=== PATIENT | female | born 1965 | race African-American/Black ===

== ENCOUNTER 2018-10-14 17:03 | Inpatient (IN) | payer OTHER ==
[2018-10-14 19:49] VITALS: BMI 34.0
--- NOTE | 2018-10-15 00:16 | HP ---
CIWA Score - Admission Criteria [facility]ASAS Guidelines: Admission for Medically Managed Detox: Requires at least one of the followin. CIWA greater than 12 2. Seizures within the past 24 hours 3. Delirium tremens within the past 24 hours 4. Hallucinations within the past 24 hours 5. Acute intervention needed for co occurring medical disorder 6. Acute intervention needed for co occurring psychiatric disorder 7. Severe withdrawal that cannot be handled at a lower level of care (continued vomiting, continued diarrhea, abnormal vital signs) requiring intravenous medication and/or fluids 8. Admission ROS S - HPI Chief Complaint: Seeking admission to Rehab. Allergies/Adverse Reactions: Allergies Allergy/AdvReac Type Severity Reaction Status Date / Time No Known Allergies Allergy Verified 10/14/18 19:49 History of Present Illness: 53 years old female with a long history of alcohol dependence is seeking admission to Rehab. Patient reports that she was in detox at [facility] for 4 days and was picked up by [facility] for Rehab. She has history of asthma, gastritis and hyperlipidemia. She denies suicidal ideation at this time. This her first admission to [facility] Exam Limitations: No Limitations - Ebola screening Have you traveled outside of the country in the last 21 days: No Have you had contact with anyone from an Ebola affected area: No - Review of Systems Constitutional: No Symptoms Reported EENT: reports: No Symptoms Reported Respiratory: reports: No Symptoms reported Cardiac: reports: No Symptoms Reported GI: reports: No Symptoms Reported : reports: No Symptoms Reported Musculoskeletal: reports: No Symptoms Reported Integumentary: reports: No Symptoms Reported Neuro: reports: No Symptoms reported Endocrine: reports: No Symptoms Reported Hematology: reports: No Symptoms Reported Psychiatric: reports: No Sypmtoms Reported, Orientated x3 Other Systems: Reviewed and Negative Patient History - Patient Medical History Hx Anemia: No Hx Asthma: No Hx Chronic Obstructive Pulmonary Disease (COPD): No Hx Cancer: No Hx Cardiac Disorders: No Hx Congestive Heart Failure: No Hx Hypertension: No Hx Hypercholesterolemia: Yes (Lipitor) Hx Pacemaker: No HX Cerebrovascular Accident: No Hx Seizures: No Hx Dementia: No Hx Diabetes: No Hx Gastrointestinal Disorders: Yes (Gastritis -Npt on mediation) Hx Liver Disease: No Hx Genitourinary Disorders: No Hx Sexually Transmitted Disorders: No Hx Renal Disease (ESRD): No Hx Thyroid Disease: No Hx Human Immunodeficiency Virus (HIV): No (Negative 2019) Hx Hepatitis C: No Hx Depression: Yes (Not o medication) Hx Suicide Attempt: No Hx Bipolar Disorder: No Hx Schizophrenia: No - Patient Surgical History Past Surgical History: Yes Other Surgical History: TUBAL LIGATION at age 22 - PPD History Previous Implant?: Yes Documented Results: Negative w/o proof PPD to be Administered?: Yes - Reproductive History Patient is a Female of Child Bearing Age (11 -55 yrs old): Yes LMP comment: MENOPAUSAL - Smoking Cessation Smoking history: Current every day smoker Have you smoked in the past 12 months: Yes Aproximately how many cigarettes per day: 3 Hx Chewing Tobacco Use: No Initiated information on smoking cessation: Yes 'Breaking Loose' booklet given: 10/15/18 - Substances abused Crack Substance route: Smoking Frequency: Daily Amount used: 100 dollars Age of first use: 22 Date of last use: 10/13/18 Alcohol Substance route: Oral Frequency: Daily Amount used: 1 fifth of vodka Age of first use: 11 Date of last use: 10/13/18 Family Disease History - Family Disease History Family Disease History: Heart Disease: Father, CA: Mother (UTERUS- ) Admission Physical Exam S - Vital Signs Vital Signs: Vital Signs - 24 hr 10/14/18 19:37 Temperature 98.6 F Pulse Rate 102 H Respiratory 20 Rate Blood Pressure 123/75 - Physical General Appearance: Yes: Within Normal Limits HEENTM: Yes: Within Normal Limits, Normal ENT Inspection, Normal Voice, ROLANDO Respiratory: Yes: Lungs Clear, Normal Breath Sounds, No Respiratory Distress Neck: Yes: Supple, Trachea in good position Breast: Yes: Breast Exam Deferred Cardiology: Yes: Regular Rhythm, Regular Rate Abdominal: Yes: Normal Bowel Sounds Genitourinary: Yes: Within Normal Limits Back: Yes: Normal Inspection Musculoskeletal: Yes: Within Normal Limits Extremities: Yes: Within Normal Limits Neurological: Yes: Within Normal Limits, Alert, Normal Mood/Affect Integumentary: Yes: Warm Lymphatic: Yes: Within Normal Limits - Diagnostic (1) Uncomplicated alcohol dependence Current Visit: Yes Status: Chronic (2) Cocaine dependence Current Visit: Yes Status: Chronic Qualifiers: Substance use status: uncomplicated Qualified Code(s): F14.20 - Cocaine dependence, uncomplicated (3) Acute gastritis Current Visit: Yes Status: Chronic Qualifiers: Gastritis type: unspecified gastritis (4) Active asthma Current Visit: Yes Status: Acute (5) Hyperlipidemia Current Visit: Yes Status: Chronic Cleared for Admission S - Detox or Rehab [facility] Level of Care: Observation Bed Claeared for Rehab Admission: Yes Breathalyzer - Breathalyzer Breathalyzer: 0 Urine Drug Screen - Test Device Lot number: [id number] Expiration date: 06/12/20 - Control Is test valid?: Yes - Results Drug screen NEGATIVE: No Urine drug screen results: ADI-Cocaine, BZO-Benzodiazepines Inpatient Rehab Admission - Rehab Decision to Admit Inpatient rehab admission?: No
[2018-10-15] MEDS ORDERED: ACETAMINOPHEN 325 MG TABLET (FP) PO PRN (00:32)
[2018-10-15] MEDS ORDERED: MAGNESIUM HYDROX 2400MG/30ML ORAL SUSPENSION 30 ML CUP PO PRN (00:32)
[2018-10-15] MEDS ORDERED: P-EPHED 60MG/TRIPROLIDI 2.5MG TABLET PO PRN (00:32)
[2018-10-15] MEDS ORDERED: MAGNESIUM CITRATE 300 ML BOTTLE PO PRN (00:32)
[2018-10-15] MEDS ORDERED: guaiFENesin 200 MG/10 ML 10 ML UNIT-DOSE CUPS PO PRN (00:32)
[2018-10-15] MEDS ORDERED: MENTHOL/PHENOL 1 EACH UD MM PRN (00:32)
[2018-10-15] MEDS ORDERED: MAG HYDROX/AL HYDROX/SIMETH 30 ML UNIT-DOSE CUP PO PRN (00:32)
[2018-10-15] MEDS ORDERED: LOPERAMIDE HCL 2 MG CAPSULE PO PRN (00:32)
[2018-10-15] MEDS: PRENATAL VITAMINS W/ FOLIC ACID TABLET (FP) PO SCH (10:08)
[2018-10-15] MEDS: NICOTINE 14 MG/24 HOURS TOPICAL PATCH TD SCH (10:08)
[2018-10-15] MEDS: THIAMINE HCL 100 MG TABLET (FP) PO SCH ×2 (10:08→21:40)
--- NOTE | 2018-10-15 10:42 | EKG ---
Test Reason : Blood Pressure : / mmHG Vent. Rate : 070 BPM Atrial Rate : 070 BPM P-R Int : 136 ms QRS Dur : 070 ms QT Int : 408 ms P-R-T Axes : 054 016 011 degrees QTc Int : 440 ms POOR DATA QUALITY, INTERPRETATION MAY BE ADVERSELY AFFECTED SINUS RHYTHM WITH MARKED SINUS ARRHYTHMIA OTHERWISE NORMAL ECG NO PREVIOUS ECGS AVAILABLE Confirmed by ISABELLE STEPHENS, MARLA ([id number]) on 10/15/2018 10:42:04 AM Referred By: Confirmed By:MARLA WALTON MD
[2018-10-15] MEDS: MELATONIN 5 MG TABLETS PO PRN (21:41)
[2018-10-16] MEDS: THIAMINE HCL 100 MG TABLET (FP) PO SCH ×2 (09:21→21:29)
[2018-10-16] MEDS: NICOTINE 14 MG/24 HOURS TOPICAL PATCH TD SCH (09:21)
[2018-10-16] MEDS: PRENATAL VITAMINS W/ FOLIC ACID TABLET (FP) PO SCH (09:21)
[2018-10-16] MEDS: MELATONIN 5 MG TABLETS PO PRN (21:29)
[2018-10-17] MEDS: PRENATAL VITAMINS W/ FOLIC ACID TABLET (FP) PO SCH (09:31)
[2018-10-17] MEDS: NICOTINE 14 MG/24 HOURS TOPICAL PATCH TD SCH (09:31)
[2018-10-17] MEDS: THIAMINE HCL 100 MG TABLET (FP) PO SCH ×2 (09:32→21:35)
[2018-10-17] MEDS: MELATONIN 5 MG TABLETS PO PRN (21:35)
[2018-10-18] MEDS: NICOTINE 14 MG/24 HOURS TOPICAL PATCH TD SCH (10:14)
[2018-10-18] MEDS: PRENATAL VITAMINS W/ FOLIC ACID TABLET (FP) PO SCH (10:14)
[2018-10-18] MEDS: THIAMINE HCL 100 MG TABLET (FP) PO SCH ×2 (10:15→21:28)
[2018-10-18] MEDS: MELATONIN 5 MG TABLETS PO PRN (21:27)
[2018-10-19] MEDS: PRENATAL VITAMINS W/ FOLIC ACID TABLET (FP) PO SCH (10:06)
[2018-10-19] MEDS: THIAMINE HCL 100 MG TABLET (FP) PO SCH ×2 (10:07→21:34)
[2018-10-19] MEDS: NICOTINE 14 MG/24 HOURS TOPICAL PATCH TD SCH (10:07)
[2018-10-19] MEDS: MELATONIN 5 MG TABLETS PO PRN (21:34)
[2018-10-20] MEDS: PRENATAL VITAMINS W/ FOLIC ACID TABLET (FP) PO SCH (09:37)
[2018-10-20] MEDS: THIAMINE HCL 100 MG TABLET (FP) PO SCH ×2 (09:37→21:09)
[2018-10-20] MEDS: NICOTINE 14 MG/24 HOURS TOPICAL PATCH TD SCH (09:38)
[2018-10-20] MEDS ORDERED: PT OWN MED DRAWER 7, Y5N ONE (19:39)
[2018-10-20] MEDS: MELATONIN 5 MG TABLETS PO PRN (21:09)
[2018-10-21] MEDS: PRENATAL VITAMINS W/ FOLIC ACID TABLET (FP) PO SCH (09:55)
[2018-10-21] MEDS: NICOTINE 14 MG/24 HOURS TOPICAL PATCH TD SCH (09:55)
[2018-10-21] MEDS: THIAMINE HCL 100 MG TABLET (FP) PO SCH ×2 (09:55→21:37)
[2018-10-21] MEDS: MELATONIN 5 MG TABLETS PO PRN (21:38)
[2018-10-22] MEDS: PRENATAL VITAMINS W/ FOLIC ACID TABLET (FP) PO SCH (10:07)
[2018-10-22] MEDS: NICOTINE 14 MG/24 HOURS TOPICAL PATCH TD SCH (10:08)
[2018-10-22] MEDS: THIAMINE HCL 100 MG TABLET (FP) PO SCH ×2 (10:08→21:55)
[2018-10-22] MEDS: MELATONIN 5 MG TABLETS PO PRN (21:55)
[2018-10-23] MEDS: NICOTINE 14 MG/24 HOURS TOPICAL PATCH TD SCH (09:45)
[2018-10-23] MEDS: PRENATAL VITAMINS W/ FOLIC ACID TABLET (FP) PO SCH (09:45)
[2018-10-23] MEDS: THIAMINE HCL 100 MG TABLET (FP) PO SCH ×2 (09:45→21:47)
[2018-10-23] MEDS: MELATONIN 5 MG TABLETS PO PRN (21:47)
[2018-10-24] MEDS: NICOTINE 14 MG/24 HOURS TOPICAL PATCH TD SCH (09:44)
[2018-10-24] MEDS: PRENATAL VITAMINS W/ FOLIC ACID TABLET (FP) PO SCH (09:44)
[2018-10-24] MEDS: THIAMINE HCL 100 MG TABLET (FP) PO SCH ×2 (09:46→21:06)
[2018-10-24] MEDS: MELATONIN 5 MG TABLETS PO PRN (21:06)
[2018-10-25] MEDS: NICOTINE 14 MG/24 HOURS TOPICAL PATCH TD SCH (10:08)
[2018-10-25] MEDS: PRENATAL VITAMINS W/ FOLIC ACID TABLET (FP) PO SCH (10:08)
[2018-10-25] MEDS: THIAMINE HCL 100 MG TABLET (FP) PO SCH ×2 (10:08→21:48)
[2018-10-25] MEDS: MELATONIN 5 MG TABLETS PO PRN (21:49)
[2018-10-26] MEDS: NICOTINE 14 MG/24 HOURS TOPICAL PATCH TD SCH (09:45)
[2018-10-26] MEDS: THIAMINE HCL 100 MG TABLET (FP) PO SCH ×2 (09:46→21:50)
[2018-10-26] MEDS: PRENATAL VITAMINS W/ FOLIC ACID TABLET (FP) PO SCH (09:46)
[2018-10-26] MEDS: MELATONIN 5 MG TABLETS PO PRN (21:50)
[2018-10-27] MEDS: THIAMINE HCL 100 MG TABLET (FP) PO SCH ×2 (09:36→21:45)
[2018-10-27] MEDS: PRENATAL VITAMINS W/ FOLIC ACID TABLET (FP) PO SCH (09:36)
[2018-10-27] MEDS: NICOTINE 14 MG/24 HOURS TOPICAL PATCH TD SCH (09:36)
[2018-10-27] MEDS: MELATONIN 5 MG TABLETS PO PRN (21:46)
[2018-10-28] MEDS: PRENATAL VITAMINS W/ FOLIC ACID TABLET (FP) PO SCH (09:37)
[2018-10-28] MEDS: NICOTINE 14 MG/24 HOURS TOPICAL PATCH TD SCH (09:37)
[2018-10-28] MEDS: THIAMINE HCL 100 MG TABLET (FP) PO SCH ×2 (09:37→21:43)
[2018-10-28] MEDS: MELATONIN 5 MG TABLETS PO PRN (21:43)
[2018-10-29] MEDS: THIAMINE HCL 100 MG TABLET (FP) PO SCH ×2 (09:44→21:30)
[2018-10-29] MEDS: NICOTINE 14 MG/24 HOURS TOPICAL PATCH TD SCH (09:44)
[2018-10-29] MEDS: PRENATAL VITAMINS W/ FOLIC ACID TABLET (FP) PO SCH (09:44)
[2018-10-29] MEDS: MELATONIN 5 MG TABLETS PO PRN (21:30)
[2018-10-30] MEDS: THIAMINE HCL 100 MG TABLET (FP) PO SCH ×2 (10:06→21:50)
[2018-10-30] MEDS: PRENATAL VITAMINS W/ FOLIC ACID TABLET (FP) PO SCH (10:06)
[2018-10-30] MEDS: NICOTINE 14 MG/24 HOURS TOPICAL PATCH TD SCH (10:07)
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
[2018-10-30] MEDS: QUEtiapine FUMARATE 100 MG TABLET (FP) PO SCH (21:50)
[2018-10-31] MEDS: NICOTINE 14 MG/24 HOURS TOPICAL PATCH TD SCH (10:13)
[2018-10-31] MEDS: PRENATAL VITAMINS W/ FOLIC ACID TABLET (FP) PO SCH (10:13)
[2018-10-31] MEDS: THIAMINE HCL 100 MG TABLET (FP) PO SCH ×2 (10:13→21:47)
[2018-10-31] MEDS ORDERED: PT OWN MED DRAWER 7, Y5N ONE (11:44)
[2018-10-31] MEDS: QUEtiapine FUMARATE 100 MG TABLET (FP) PO SCH (21:47)
[2018-11-01] MEDS: PRENATAL VITAMINS W/ FOLIC ACID TABLET (FP) PO SCH (09:55)
[2018-11-01] MEDS: THIAMINE HCL 100 MG TABLET (FP) PO SCH ×2 (09:55→21:37)
[2018-11-01] MEDS: NICOTINE 14 MG/24 HOURS TOPICAL PATCH TD SCH (09:55)
[2018-11-01] MEDS: QUEtiapine FUMARATE 100 MG TABLET (FP) PO SCH (21:37)
[2018-11-02] MEDS ORDERED: PT OWN MED DRAWER 7, Y5N ONE (09:08)
[2018-11-02] MEDS: NICOTINE 14 MG/24 HOURS TOPICAL PATCH TD SCH (10:22)
[2018-11-02] MEDS: PRENATAL VITAMINS W/ FOLIC ACID TABLET (FP) PO SCH (10:22)
[2018-11-02] MEDS: THIAMINE HCL 100 MG TABLET (FP) PO SCH ×2 (10:22→21:45)
[2018-11-02] MEDS: QUEtiapine FUMARATE 100 MG TABLET (FP) PO SCH (21:45)
[2018-11-03] MEDS: NICOTINE 14 MG/24 HOURS TOPICAL PATCH TD SCH (10:24)
[2018-11-03] MEDS: THIAMINE HCL 100 MG TABLET (FP) PO SCH ×2 (10:24→21:16)
[2018-11-03] MEDS: PRENATAL VITAMINS W/ FOLIC ACID TABLET (FP) PO SCH (10:24)
[2018-11-03] MEDS ORDERED: PT OWN MED DRAWER 7, Y5N ONE (15:01)
[2018-11-03] MEDS: MELATONIN 5 MG TABLETS PO PRN (21:16)
[2018-11-03] MEDS: QUEtiapine FUMARATE 100 MG TABLET (FP) PO SCH (21:17)
[2018-11-04] MEDS: NICOTINE 14 MG/24 HOURS TOPICAL PATCH TD SCH (09:48)
[2018-11-04] MEDS: THIAMINE HCL 100 MG TABLET (FP) PO SCH ×2 (09:48→21:24)
[2018-11-04] MEDS: PRENATAL VITAMINS W/ FOLIC ACID TABLET (FP) PO SCH (09:48)
[2018-11-04] MEDS: QUEtiapine FUMARATE 100 MG TABLET (FP) PO SCH (21:24)
[2018-11-04] MEDS: NICOTINE POLACRILEX 2 MG GUM BUC PRN (21:32)
[2018-11-05] MEDS: NICOTINE POLACRILEX 2 MG GUM BUC PRN (10:24)
[2018-11-05] MEDS: THIAMINE HCL 100 MG TABLET (FP) PO SCH ×2 (10:24→21:22)
[2018-11-05] MEDS: PRENATAL VITAMINS W/ FOLIC ACID TABLET (FP) PO SCH (10:24)
[2018-11-05] MEDS: NICOTINE 14 MG/24 HOURS TOPICAL PATCH TD SCH (10:24)
[2018-11-05] MEDS: MELATONIN 5 MG TABLETS PO PRN (21:22)
[2018-11-05] MEDS: QUEtiapine FUMARATE 100 MG TABLET (FP) PO SCH (21:22)
[2018-11-06] MEDS: NICOTINE 14 MG/24 HOURS TOPICAL PATCH TD SCH (09:43)
[2018-11-06] MEDS: THIAMINE HCL 100 MG TABLET (FP) PO SCH ×2 (09:43→21:34)
[2018-11-06] MEDS: PRENATAL VITAMINS W/ FOLIC ACID TABLET (FP) PO SCH (09:43)
[2018-11-06] MEDS: NICOTINE POLACRILEX 2 MG GUM BUC PRN (09:44)
[2018-11-06] MEDS ORDERED: COLLOIDAL OATMEAL 1 BAR EACH TP PRN (11:48)
[2018-11-06] MEDS: MELATONIN 5 MG TABLETS PO PRN (21:34)
[2018-11-06] MEDS: QUEtiapine FUMARATE 100 MG TABLET (FP) PO SCH (21:34)
[2018-11-07] MEDS: NICOTINE 14 MG/24 HOURS TOPICAL PATCH TD SCH (09:49)
[2018-11-07] MEDS: PRENATAL VITAMINS W/ FOLIC ACID TABLET (FP) PO SCH (09:49)
[2018-11-07] MEDS: THIAMINE HCL 100 MG TABLET (FP) PO SCH ×2 (09:49→21:16)
[2018-11-07] MEDS: NICOTINE POLACRILEX 2 MG GUM BUC PRN (09:51)
[2018-11-07] MEDS: MELATONIN 5 MG TABLETS PO PRN (21:16)
[2018-11-07] MEDS: QUEtiapine FUMARATE 100 MG TABLET (FP) PO SCH (21:16)
[2018-11-08] MEDS: NICOTINE 14 MG/24 HOURS TOPICAL PATCH TD SCH (09:27)
[2018-11-08] MEDS: PRENATAL VITAMINS W/ FOLIC ACID TABLET (FP) PO SCH (09:27)
[2018-11-08] MEDS: THIAMINE HCL 100 MG TABLET (FP) PO SCH ×2 (09:27→21:27)
[2018-11-08] MEDS: NICOTINE POLACRILEX 2 MG GUM BUC PRN (09:28)
[2018-11-08] MEDS: QUEtiapine FUMARATE 100 MG TABLET (FP) PO SCH (21:27)
[2018-11-08] MEDS: MELATONIN 5 MG TABLETS PO PRN (21:27)
[2018-11-08] MEDS: IBUPROFEN 400 MG TABLET (FP) PO PRN (21:27)
[2018-11-09] MEDS: PRENATAL VITAMINS W/ FOLIC ACID TABLET (FP) PO SCH (09:29)
[2018-11-09] MEDS: NICOTINE 14 MG/24 HOURS TOPICAL PATCH TD SCH (09:29)
[2018-11-09] MEDS: THIAMINE HCL 100 MG TABLET (FP) PO SCH ×2 (09:29→21:39)
[2018-11-09] MEDS: NICOTINE POLACRILEX 2 MG GUM BUC PRN (09:29)
[2018-11-09] MEDS: QUEtiapine FUMARATE 100 MG TABLET (FP) PO SCH (21:39)
[2018-11-10] MEDS: NICOTINE POLACRILEX 2 MG GUM BUC PRN (09:30)
[2018-11-10] MEDS: NICOTINE 14 MG/24 HOURS TOPICAL PATCH TD SCH (09:30)
[2018-11-10] MEDS: PRENATAL VITAMINS W/ FOLIC ACID TABLET (FP) PO SCH (09:30)
[2018-11-10] MEDS: THIAMINE HCL 100 MG TABLET (FP) PO SCH ×2 (09:30→21:38)
[2018-11-10] MEDS: QUEtiapine FUMARATE 100 MG TABLET (FP) PO SCH (21:38)
--- NOTE | 2018-11-11 08:13 | PN ---
[facility] Progress Note Note: Patient is scheduled for discharge tomorrow. Script for 30 days supply of Seroquel 100 mg/hs will be electronically transmitted to [facility] [address] [id number]
[2018-11-11] MEDS: PRENATAL VITAMINS W/ FOLIC ACID TABLET (FP) PO SCH (10:24)
[2018-11-11] MEDS: NICOTINE 14 MG/24 HOURS TOPICAL PATCH TD SCH (10:24)
[2018-11-11] MEDS: IBUPROFEN 400 MG TABLET (FP) PO PRN (10:25)
[2018-11-11] MEDS: THIAMINE HCL 100 MG TABLET (FP) PO SCH ×2 (10:25→21:20)
--- NOTE | 2018-11-11 13:52 | PN ---
S Progress Note (SOAP) Subjective: Patient to be discharged tomorrow. HOSPITAL COURSE: Patient attended groups, [place] 1:1 session with counselor, was adherent to her treatment plan and her medication regimen. Patient made satisfactory progress on her recovery and had no medical issues. Objective: - Physical General Appearance: appropriate HEENTM: ROLANDO, normocephalic, poor dentition Respiratory: Lungs Clear, Normal Breath Sounds, No Respiratory Distress Neck: Supple, Trachea in good position Cardiology: Regular Rhythm, Regular Rate Abdominal:+Bowel Sounds Musculoskeletal: full weight bearing, full ROM, gait steady Neurological: Alert, CN 2-12 intact, no neurological deficits noted Integumentary: Warm, dry, good skin turgor, color consistent throughout trunk and extremities Lymphatic: no palpable lymph nodes. Vital Signs (72 hours) 11/09/18 11/09/18 11/09/18 00:30 03:30 06:41 Temperature 97.3 F L Pulse Rate 75 Respiratory 18 18 16 Rate Blood Pressure 121/74 11/10/18 11/10/18 11/10/18 00:30 03:30 06:43 Temperature 97.7 F Pulse Rate 113 H Respiratory 18 18 20 Rate Blood Pressure 118/71 11/11/18 11/11/18 03:30 07:05 Temperature 97.6 F Pulse Rate 84 Respiratory 18 18 Rate Blood Pressure 112/80 11/11/18 13:49 Assessment: Medically stable for discharge Discharge Dx: ETOH dependence Cocaine Dependence Hyperlipidemia Asthma Gastritis. chronic 11/11/18 13:55 Plan: On-going continuation of care: patient will continue treatment at [facility], and seek medical care and mental health services at [facility]. Prescriptions were transmitted to her pharmacy.
[2018-11-11] MEDS ORDERED: CYCLOBENZAPRINE HCL 5 MG TABLET PO ONE (14:00)
[2018-11-11] MEDS: QUEtiapine FUMARATE 100 MG TABLET (FP) PO SCH (21:20)
[2018-11-12 06:54] VITALS: BP 127/73; PULSE 100; TEMP 97.9
[2018-11-12] MEDS: THIAMINE HCL 100 MG TABLET (FP) PO SCH (09:20)
[2018-11-12] MEDS: NICOTINE 14 MG/24 HOURS TOPICAL PATCH TD SCH (09:20)
[2018-11-12] MEDS: PRENATAL VITAMINS W/ FOLIC ACID TABLET (FP) PO SCH (09:20)
== END 2018-11-12 09:25 | disposition home or self-care (01) | DRG 772 ==
LOC: YASAS 17:03 → Y3W 10-15 01:15
PROVIDERS: ADMIT Neuromusculoskeletal Medicine & OMM; ATTEND Neuromusculoskeletal Medicine & OMM
PROC: HZ42ZZZ Group Counseling for Substance Abuse Treatment, Cognitive-Behavioral (ICD-10-PCS; principal; 2018-10-15)
DX: F10.20 Alcohol dependence, uncomplicated (principal); F14.20 Cocaine dependence, uncomplicated; F17.210 Nicotine dependence, cigarettes, uncomplicated; F19.959 Other psychoactive substance use, unspecified with psychoactive substance-induced psychotic disorder, unspecified; F20.9 Schizophrenia, unspecified; E78.5 Hyperlipidemia, unspecified; J45.909 Unspecified asthma, uncomplicated; K29.50 Unspecified chronic gastritis without bleeding
CPT/HCPCS: 93005; 93010